=== PATIENT | male | born 1970 | race Caucasian/White ===

== ENCOUNTER 2017-04-02 10:13 | Emergency (ER) | payer OTHER ==
[2017-04-02 10:56] VITALS: BP 113/84
--- NOTE | 2017-04-02 11:14 | RAD ---
INDICATION: Right thumb injury COMPARISON: None TECHNIQUE: AP, lateral, and oblique views were obtained. FINDINGS: There is a nondisplaced, intra-articular fracture involving the base of the distal phalanx of the thumb. There are no other fractures. The joint spaces are otherwise normal. There is mild soft tissue swelling. IMPRESSION: FRACTURE DISTAL PHALANX OF THE THUMB DESCRIBED.
--- NOTE | 2017-04-02 11:34 | UC ---
Upper Extremity HPI - HPI Summary HPI Summary: Patient presents to the with right thumb pain after falling down during tennis on an outstretched thumb 2 days ago. Notes to some ecchymosis on the lateral side of the thumb near the DIP joint. Has full ROM, but with pain. Denies weakness or tingling. Denies temperature changes. Pain is 2/10 and throbbing. - History of Current Complaint Chief Complaint: UCUpperExtremity Stated Complaint: THUMB INJURY Time Seen by Provider: 04/02/17 10:56 Hx Obtained From: Patient ?: No Onset/Duration: Sudden Onset Severity Initially: Mild Severity Currently: Mild Pain Intensity: 2 Pain Scale Used: 0-10 Numeric Location Of Pain: Is Discrete @ - right thumb Aggravating Factor(s): Movement, Lifting, Flexion, Extension Alleviating Factor(s): Compression Associated Signs And Symptoms: Positive: Bruising Related History: Dominant Hand Right - Risk Factors Non-Orthopedic Risk Factor: Negative DVT Risk Factors: Negative - Allergies/Home Medications Allergies/Adverse Reactions: Allergies Allergy/AdvReac Type Severity Reaction Status Date / Time Penicillins Allergy See Comment Verified 04/02/17 10:47 Home Medications: Home Medications Nebivolol TAB (NF) [Bystolic TAB (NF)] 04/02/17 [History] PMH/Surg Hx/FS Hx/Imm Hx Previously Healthy: Yes - Surgical History Surgical History: None - Family History Known Family History: Positive: Unknown - Social History Occupation: Employed Full-time Lives: With Family Alcohol Use: None Substance Use Type: None Smoking Status (MU): Never Smoked Tobacco Have You Smoked in the Last Year: No Review of Systems Constitutional: Negative Skin: Negative Respiratory: Negative Cardiovascular: Negative Gastrointestinal: Negative Motor: Negative Neurovascular: Negative Musculoskeletal: Arthralgia - right thumb pain Neurological: Negative Psychological: Negative Is Patient Immunocompromised?: No All Other Systems Reviewed And Are Negative: Yes Physical Exam Triage Information Reviewed: Yes Appearance: Well-Appearing, Well-Nourished Vital Signs: Initial Vital Signs Temp 98.6 F 04/02/17 10:48 Pulse 80 04/02/17 10:48 Resp 16 04/02/17 10:48 BP 113/84 04/02/17 10:48 Pulse Ox 98 04/02/17 10:48 Vital Signs Reviewed: Yes Eye Exam: Normal Eyes: Positive: Conjunctiva Clear Neck exam: Normal Neck: Positive: Supple, No Lymphadenopathy Respiratory Exam: Normal Respiratory: Positive: Chest non-tender, Lungs clear Musculoskeletal: Positive: Strength Intact, ROM Intact Neurological Exam: Normal Neurological: Positive: Alert Psychological: Positive: Normal Response To Family, Age Appropriate Behavior Skin Exam: Normal Upper Extremity Course/Dx - Course Course Of Treatment: Patient is evaluated for right thumb pain. Feel on outstretched thumb. Still has full ROM. Eccymosis overlying the lateral side of the DIP joint. Xray shows: Distal phalynx fracture. The thumb was splinted and return precautions given. Ortho follow up. - Differential Dx/Diagnosis Differential Diagnosis/HQI/PQRI: Contusion, Fracture (Open), Fracture (Closed) Provider Diagnoses: Fracture right distal phalynx - thumb Discharge - Discharge Plan Condition: Stable Disposition: HOME Patient Education Materials: Thumb Fracture (ED) Referrals: Mansoor Matos MD [Primary Care Provider] - Breonna Thmoas MD [Medical Doctor] - Additional Instructions: Follow up with Dr. Thomas sometime next week Call Tuesday for appt Keep in splint Ibuprofen 600mg three times daily
== END 2017-04-02 11:35 | disposition home or self-care (01) ==
LOC: UCEAST 10:13
DX: S62.524A Nondisplaced fracture of distal phalanx of right thumb, initial encounter for closed fracture (principal); W18.30XA Fall on same level, unspecified, initial encounter; Y93.73 Activity, racquet and hand sports; Y92.312 Tennis court as the place of occurrence of the external cause; Z88.0 Allergy status to penicillin
CPT/HCPCS: 99201; G0463